=== PATIENT | male | born 1945 | race Caucasian/White ===

== ENCOUNTER 2021-11-29 22:16 | Observation (INO) | payer MEDICARE ==
[2021-11-29] MEDS ORDERED: CARDENE*** 25 MG in Sodium Chloride 0.9% 250 ML 240 ML IV PRN (22:38)
[2021-11-29] MEDS ORDERED: Sodium Chloride 0.9% 250 ML 250 ML IV ONE (22:42)
[2021-11-29] MEDS ORDERED: CARDENE IV ONE (22:42)
[2021-11-29] MEDS ORDERED: Zofran 4 MG/2 ML VIAL ONE (22:52)
[2021-11-29] MEDS ORDERED: Ativan 2 MG/1 ML VIAL ONE (22:52)
[2021-11-29] MEDS ORDERED: Zofran 4 MG/2 ML VIAL IV ONE (22:54)
[2021-11-29] MEDS ORDERED: Ativan 2 MG/1 ML VIAL IM ONE (22:54)
[2021-11-29 23:06] LABS: Absolute Neutrophil Ct (ANC) 7.53 (1.4-6.9); Basophil (Absolute #) 0.11 (0-0.4); Eosinophil % 2.9 % (0.00-5.0); Hematocrit 45.4 % (42-50); Hemoglobin 15.4 gm/dl (12.5-18.0); Lymphocyte (Absolute #) 1.33 (1.0-4.6); Mean Cell Volume 95.6 fl (78-100); Mean Corpuscular Hemoglobin 32.4 pg (26-32); Mean Corpuscular Hgb Concent. 33.9 g/dl (32-36); Mean Platelet Volume 8.6 fl (7.5-11.0); Monocyte (Absolute #) 0.95 (0.0-1.3); Monocytes % 9.3 % (0.0-12.0); Neutrophil % 73.7 % (36.0-66.0); Platelet Count 222 K/mm3 (150-450); Red Blood Count 4.75 M/mm3 (4.1-5.6); Red Cell Distribution Width 13.4 % (11.5-14.0); White Blood Count 10.2 K/mm3 (4.0-10.5)
[2021-11-29 23:16] LABS: INR 0.98 (0.8-3.0); PROTIME 11.6 SECONDS (9.4-12.5)
[2021-11-29 23:27] LABS: Appearance CLEAR (CLEAR); Bilirubin NEGATIVE (NEGATIVE); Dipstick done @ ? MAIN LAB; Glucose NEGATIVE (NEGATIVE); Ketones NEGATIVE (NEGATIVE); Nitrite NEGATIVE (NEGATIVE); Protein,Urine Dip NEGATIVE (Negative); RBC TRACE-INTACT Ery/ul (0-5); Specific Gravity 1.025 (1.005-1.025); Urobilinogen 0.2 mg/dL (0-1)
[2021-11-29 23:30] LABS: ALBUMIN 4.5 g/dL (3.5-5.0); ALKALINE PHOSPHATASE 75 U/L (38-126); ANION GAP 12.6 MEQ/L (5-15); BLOOD UREA NITROGEN 12 mg/dL (9-20); CHLORIDE 104 mmol/L (98-107); Calcium 9.4 mg/dL (8.4-10.2); Carbon Dioxide 27 mmol/L (22-30); Creatinine 1 0.77 mg/dL (0.66-1.25); EST GLOMERULAR FILTRATION RATE > 60.0 ML/MIN; Glucose 110 mg/dL (74-106); MAGNESIUM 1.8 mg/dL (1.6-2.3); NT PRO BNP 1300 pg/mL (0-1800); Potassium 4.7 mmol/L (3.5-5.1); SGOT/AST 27 U/L (17-59); SGPT/ALT 16 U/L (0-50); SODIUM 139 mmol/L (137-145); Total Protein 7.7 g/dL (6.3-8.2)
--- NOTE | 2021-11-29 23:35 | ERPHSYRPT ---
- History of Present Illness Time Seen by Provider: 11/29/21 22:25 Source: patient, family Exam Limitations: no limitations Patient Subjective Stated Complaint: shortness of breath Triage Nursing Assessment: pt c/o shortness of breath since 2129 this evening. Pt had gone to bed and just couldn't go to sleep. Lung smith diminished throughout. Heart tones reg, pt has a pacemaker. Pt denies any chest pain. Pt denies cough. Physician History: Patient is a 76-year-old male who laid down this evening with plans to go to sleep when he could go to sleep he became extremely short of breath he noticed his blood pressure to be markedly elevated. On arrival his blood pressure was 220/144 heart rate was 79 EKG showed a paced rhythm. He has no chest pain at all and no history of CHF. Patient also denies any any cough. 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 Timing/Duration: today Activities at Onset: rest Severity of Dyspnea-Max: moderate Severity of Dyspnea-Current: moderate Modifying Factors: Improves With: exertion Associated Symptoms: anxiety Allergies/Adverse Reactions: No Known Drug Allergies Allergy (Unverified 11/29/21 22:31) Home Medications: Metoprolol Succinate 100 mg [Toprol Xl 100 MG] 50 mg PO BID 11/29/21 [History] Hx Tetanus, Diphtheria Vaccination/Date Given: No Hx Influenza Vaccination/Date Given: Yes Hx Pneumococcal Vaccination/Date Given: Yes Immunizations Up to Date: No Travel Risk - International Travel Have you traveled outside of the country in past 3 weeks: No - Coronavirus Screening Are you exhibiting any of the following symptoms?: Yes Symptoms: Shortness of Breath Close contact with a COVID-19 positive Pt in past 14-21 Days: No - Vaccine Status Have you recieved a Covid-19 vaccination: Yes Supply Chain Specialist: Moderna - Vaccination Dates Date of 2cond Vaccination (if applicable): 10/01/20 - Review of Systems Constitutional: No Fever, No Chills Eyes: No Symptoms Ears, Nose, & Throat: No Symptoms Respiratory: Dyspnea, Dyspnea on Exertion (CEDENO), No Cough Cardiac: No Chest Pain, No Edema, No Syncope Abdominal/Gastrointestinal: No Abdominal Pain, No Nausea, No Vomiting, No Diarrhea Genitourinary Symptoms: No Dysuria Musculoskeletal: No Back Pain, No Neck Pain Skin: No Rash Neurological: No Dizziness, No Focal Weakness, No Sensory Changes Psychological: No Symptoms, Anxiety Endocrine: No Symptoms Hematologic/Lymphatic: No Symptoms Immunological/Allergic: No Symptoms All Other Systems: Reviewed and Negative - Past Medical History Pertinent Past Medical History: Yes Neurological History: No Pertinent History ENT History: No Pertinent History Cardiac History: Aneurysm, High Cholesterol, Hypertension Respiratory History: No Pertinent History Endocrine Medical History: No Pertinent History Musculoskeletal History: No Pertinent History GI Medical History: No Pertinent History History: No Pertinent History Psycho-Social History: Anxiety Male Reproductive Disorders: No Pertinent History - Past Surgical History Past Surgical History: Yes Neuro Surgical History: No Pertinent History Cardiac: CABG, Cardiac Catheterization, Pacemaker, Valve Replacement, Other Respiratory: No Pertinent History Gastrointestinal: No Pertinent History Genitourinary: No Pertinent History Musculoskeletal: No Pertinent History Male Surgical History: No Pertinent History - Social History Smoking Status: Current every day smoker How long have you smoked: 61 yrs Exposure to second hand smoke: No Drug Use: none Patient Lives Alone: No - Nursing Vital Signs Nursing Vital Signs: Initial Vital Signs Temperature 96.9 F 11/29/21 22:17 Pulse Rate 79 11/29/21 22:17 Respiratory Rate 22 11/29/21 22:17 Blood Pressure 221/144 11/29/21 22:17 O2 Sat by Pulse Oximetry 95 11/29/21 22:17 Pain Scale Pain Intensity 0 - Physical Exam General Appearance: moderate distress, alert, thin Eye Exam: PERRL/EOMI Ears, Nose, Throat Exam: hearing grossly normal, normal ENT inspection Neck Exam: normal inspection, supple Respiratory Exam: diminished breath sounds, crackles/rales Cardiovascular/Chest Exam: normal heart sounds, regular rate/rhythm Abdominal/Gastrointestinal Exam: soft, No tenderness, No distention, No mass Extremity Exam: non-tender, normal range of motion, normal inspection, no calf tenderness, no pedal edema Peripheral Pulses Exam: carotid (R): 2+, carotid (L): 2+ Neurologic Exam: alert, oriented x 3, cooperative, 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, sensation nml, No motor deficits Skin Exam: normal color, warm, No dry SpO2 Interpretation: normal SpO2: 95 O2 Delivery: Room Air - Course Nursing assessment & vital signs reviewed: Yes EKG Interpreted by Me: RATE, Other (EKG shows a paced rhythm bichamber pacemaker ) - Radiology Exams Chest X-ray Interpretation: Teleradiologist Report - CT Exams Chest CT Interpretation: Tele-radiologist Report Ordered Tests: Active Orders 24 hr Category Date Time Status Refuse Collector Supervisor STAT Care 11/29/21 22:41 Active EKG-ER Only STAT Care 11/29/21 22:31 Active IV Insertion STAT Care 11/29/21 22:31 Active IV Insertion-2nd Peripheral STAT Care 11/29/21 22:59 Active CHEST 1 VIEW (PORTABLE) Stat Exams 11/29/21 22:32 Taken CHEST WITH CONTRAST [CT] Routine Exams 11/30/21 00:11 Taken CBC W DIFF Stat Lab 11/29/21 23:00 Completed CMP Stat Lab 11/29/21 23:00 Completed D-DIMER QUANTITATIVE Stat Lab 11/29/21 23:00 Completed Lactic Acid Stat Lab 11/29/21 23:06 Completed MAGNESIUM Stat Lab 11/29/21 23:00 Completed NT PRO BNP Stat Lab 11/29/21 23:00 Completed PROTIME WITH INR Stat Lab 11/29/21 23:00 Completed TROPONIN Q3H Lab 11/29/21 23:00 Completed TROPONIN Q3H Lab 11/30/21 01:45 Ordered TROPONIN Q3H Lab 11/30/21 04:45 Ordered TROPONIN Q3H Lab 11/30/21 07:45 Ordered TROPONIN Q3H Lab 11/30/21 10:45 Ordered UA W/RFX CULTURE Stat Lab 11/29/21 23:04 Completed Respiratory Therapy Assessment DAILY RT 11/30/21 01:10 Active Medication Summary Generic Name Dose Route Start Last Admin Trade Name Freq PRN Reason Stop Dose Admin Nicardipine HCl 25 mg/ Sodium 250 mls @ 0 mls/hr 11/29/21 22:38 11/30/21 00:44 Chloride IV 12/29/21 22:37 2.5 mg/hr .Q0M PRN 25 mls/hr TITRATE FOR BLOOD PRESSURE Titration Protocol Titrate Discontinued Medications Generic Name Dose Route Start Last Admin Trade Name Freq PRN Reason Stop Dose Admin Albuterol/Ipratropium 3 ml 11/30/21 00:40 11/30/21 01:10 Ipratropium/Albuterol Sulfate 3 Ml Ampul.Neb IH 11/30/21 00:41 3 ml STAT ONE Administration Albuterol/Ipratropium Confirm 11/30/21 00:44 Ipratropium/Albuterol Sulfate 3 Ml Ampul.Neb Administered 11/30/21 00:45 Dose 3 ml IH .STK-MED ONE Amlodipine Besylate 5 mg 11/30/21 00:35 11/30/21 00:38 Amlodipine Besylate 5 Mg Tablet PO 11/30/21 00:36 5 mg STAT ONE Administration Amlodipine Besylate Confirm 11/30/21 00:36 Amlodipine Besylate 5 Mg Tablet Administered 11/30/21 00:37 Dose 5 mg .ROUTE .STK-MED ONE Methylprednisolone Sodium 0 mg 11/30/21 00:39 Succinate 125 mg/ Sterile IV 11/30/21 00:40 Water 2 ml STAT ONE Sodium Chloride Confirm 11/29/21 22:42 Sodium Chloride 0.9% 250 Ml Administered 11/29/21 22:43 Dose 250 mls @ ud IV .STK-MED ONE Lorazepam Confirm 11/29/21 22:52 Lorazepam 2 Mg/1 Ml 2 Mg Vial Administered 11/29/21 22:53 Dose 2 mg .ROUTE .STK-MED ONE Lorazepam 1 mg 11/29/21 22:54 11/29/21 22:59 Lorazepam 2 Mg/1 Ml 2 Mg Vial IM 11/29/21 22:55 1 mg STAT ONE Administration Nicardipine HCl Confirm 11/29/21 22:42 Nicardipine Hcl 25mg/10 Ml Sdv Administered 11/29/21 22:43 Dose 25 mg IV .STK-MED ONE Ondansetron HCl Confirm 11/29/21 22:52 Ondansetron Hcl 4 Mg/2 Ml Vial Administered 11/29/21 22:53 Dose 4 mg .ROUTE .STK-MED ONE Ondansetron HCl 4 mg 11/29/21 22:54 11/29/21 22:59 Ondansetron Hcl 4 Mg/2 Ml Vial IV 11/29/21 22:55 4 mg STAT ONE Administration Lab/Rad Data: Laboratory Result Diagrams 11/29/21 23:00 11/29/21 23:00 Laboratory Results 11/29/21 11/29/21 11/29/21 Range/Units 23:06 23:04 23:00 WBC (4.0-10.5) K/mm3 RBC (4.1-5.6) M/mm3 Hgb (12.5-18.0) gm/dl Hct (42-50) % MCV (78-100) fl MCH (26-32) pg MCHC (32-36) g/dl RDW (11.5-14.0) % Plt Count (150-450) K/mm3 MPV (7.5-11.0) fl Gran % (36.0-66.0) % Eos # (Auto) (0-0.5) Absolute Lymphs (auto) (1.0-4.6) Absolute Monos (auto) (0.0-1.3) Lymphocytes % (24.0-44.0) % Monocytes % (0.0-12.0) % Eosinophils % (0.00-5.0) % Basophils % (0.0-0.4) % Absolute Granulocytes (1.4-6.9) Basophils # (0-0.4) PT (9.4-12.5) SECONDS INR (0.8-3.0) D-Dimer (215-500) ng/mL Sodium (137-145) mmol/L Potassium (3.5-5.1) mmol/L Chloride (98-107) mmol/L Carbon Dioxide (22-30) mmol/L Anion Gap (5-15) MEQ/L BUN (9-20) mg/dL Creatinine (0.66-1.25) mg/dL Estimated GFR ML/MIN Glucose (74-106) mg/dL Lactic Acid 0.9 (0.4-2.0) Calcium (8.4-10.2) mg/dL Magnesium (1.6-2.3) mg/dL Total Bilirubin (0.2-1.3) mg/dL AST (17-59) U/L ALT (0-50) U/L Alkaline Phosphatase (38-126) U/L Troponin I 0.013 (0.000-0.034) ng/mL NT-Pro-B Natriuret Pep (0-1800) pg/mL Serum Total Protein (6.3-8.2) g/dL Albumin (3.5-5.0) g/dL Urinalys Dipstick Clnc MAIN LAB Urine Color LT.YELLOW (YELLOW) Urine Appearance CLEAR (CLEAR) Urine pH 7.0 (5-6) Ur Specific [place] 1.025 (1.005-1.025) POC Urine Protein Conf NEGATIVE (Negative) Urine Ketones NEGATIVE (NEGATIVE) Urine Nitrite NEGATIVE (NEGATIVE) Urine Bilirubin NEGATIVE (NEGATIVE) Urine Urobilinogen 0.2 (0-1) mg/dL Urine Leukocytes NEGATIVE (NEGATIVE) Urine WBC (Auto) NONE (0-5) /HPF Urine RBC (Auto) NONE (0-2) /HPF U Epithel Cells (Auto) Not Reportable Urine Bacteria (Auto) NONE (NEGATIVE) /HPF Urine RBC TRACE-INTACT (0-5) Barber/ul Ur Culture Indicated? NO Urine Glucose NEGATIVE (NEGATIVE) mg/dL 11/29/21 11/29/21 11/29/21 Range/Units 23:00 23:00 23:00 WBC 10.2 (4.0-10.5) K/mm3 RBC 4.75 (4.1-5.6) M/mm3 Hgb 15.4 (12.5-18.0) gm/dl Hct 45.4 (42-50) % MCV 95.6 (78-100) fl MCH 32.4 H (26-32) pg MCHC 33.9 (32-36) g/dl RDW 13.4 (11.5-14.0) % Plt Count 222 (150-450) K/mm3 MPV 8.6 (7.5-11.0) fl Gran % 73.7 H (36.0-66.0) % Eos # (Auto) 0.30 (0-0.5) Absolute Lymphs (auto) 1.33 (1.0-4.6) Absolute Monos (auto) 0.95 (0.0-1.3) Lymphocytes % 13.0 L (24.0-44.0) % Monocytes % 9.3 (0.0-12.0) % Eosinophils % 2.9 (0.00-5.0) % Basophils % 1.1 (0.0-0.4) % Absolute Granulocytes 7.53 H (1.4-6.9) Basophils # 0.11 (0-0.4) PT 11.6 (9.4-12.5) SECONDS INR 0.98 (0.8-3.0) D-Dimer 2230 H* (215-500) ng/mL Sodium 139 (137-145) mmol/L Potassium 4.7 (3.5-5.1) mmol/L Chloride 104 (98-107) mmol/L Carbon Dioxide 27 (22-30) mmol/L Anion Gap 12.6 (5-15) MEQ/L BUN 12 (9-20) mg/dL Creatinine 0.77 (0.66-1.25) mg/dL Estimated GFR > 60.0 ML/MIN Glucose 110 H (74-106) mg/dL Lactic Acid (0.4-2.0) Calcium 9.4 (8.4-10.2) mg/dL Magnesium 1.8 (1.6-2.3) mg/dL Total Bilirubin 0.60 (0.2-1.3) mg/dL AST 27 (17-59) U/L ALT 16 (0-50) U/L Alkaline Phosphatase 75 (38-126) U/L Troponin I (0.000-0.034) ng/mL NT-Pro-B Natriuret Pep 1300 (0-1800) pg/mL Serum Total Protein 7.7 (6.3-8.2) g/dL Albumin 4.5 (3.5-5.0) g/dL Urinalys Dipstick Clnc Urine Color (YELLOW) Urine Appearance (CLEAR) Urine pH (5-6) Ur Specific [place] (1.005-1.025) POC Urine Protein Conf (Negative) Urine Ketones (NEGATIVE) Urine Nitrite (NEGATIVE) Urine Bilirubin (NEGATIVE) Urine Urobilinogen (0-1) mg/dL Urine Leukocytes (NEGATIVE) Urine WBC (Auto) (0-5) /HPF Urine RBC (Auto) (0-2) /HPF U Epithel Cells (Auto) Urine Bacteria (Auto) (NEGATIVE) /HPF Urine RBC (0-5) Barber/ul Ur Culture Indicated? Urine Glucose (NEGATIVE) mg/dL - Departure Departure Disposition: Observation Clinical Impression: COPD exacerbation, Hypertensive urgency Condition: Stable Critical Care Time: Yes Critical Care Time(excluding separately billable procedures): Critical 30-74 mins (30 minutes) Referrals: CORBY JULIO NP [Primary Care Provider] - Follow up/PCP as directed Instructions: Chronic Obstructive Pulmonary Disease
[2021-11-29 23:49] LABS: Urine Cultured Indicated? NO
[2021-11-30] MEDS ORDERED: NORVASC 5 MG PO ONE (00:35)
[2021-11-30] MEDS ORDERED: NORVASC 5 MG ONE (00:36)
[2021-11-30] MEDS ORDERED: solu-MEDROL 125 MG, Sterile H2O 10 ml 2 ML IV ONE ×2 (00:39)
[2021-11-30] MEDS ORDERED: DUONEB 0.5-3 MG/3 ml Neb IH ONE ×2 (00:40→00:44)
[2021-11-30] MEDS ORDERED: Sodium Chloride 0.9% 1000 ML 1,000 ML IV SCH (01:30)
[2021-11-30] MEDS ORDERED: Lasix 20 MG/2 ML IV ONE (01:31)
[2021-11-30] MEDS ORDERED: solu-MEDROL ONE ×2 (01:39→05:24)
[2021-11-30] MEDS ORDERED: ENOXAPARIN SODIUM SQ ONE (01:39)
[2021-11-30] MEDS ORDERED: Sterile H2O 10 ml IJ ONE ×2 (01:39→05:24)
[2021-11-30] MEDS: Lasix 40 MG/4 ML IV SCH ×2 (01:45→09:54)
[2021-11-30] MEDS: ENOXAPARIN SODIUM SQ SCH ×2 (01:46→09:54)
[2021-11-30 02:01] LABS: INFLUENZA A NEGATIVE (NEGATIVE); INFLUENZA B NEGATIVE (NEGATIVE); RESPIRATORY SYNCTIAL VIRUS NEGATIVE (Negative); SARS-CoV-2 Xpert Express NEGATIVE (NEGATIVE)
[2021-11-30] MEDS: PROVENTIL 2.5 MG/3 ML NEB IH SCH ×3 (03:30→11:31)
[2021-11-30 04:30] LABS: Slide Review 1 YES
[2021-11-30] MEDS: solu-MEDROL 60 MG, Sterile H2O 10 ml 2 ML IV SCH ×4 (05:58→13:11)
[2021-11-30] MEDS ORDERED: PROVENTIL Solution 2.5 MG/0.5 ML IH ONE (06:54)
[2021-11-30 07:58] LABS: Hematocrit 45.7 % (42-50); Hemoglobin 15.6 gm/dl (12.5-18.0); Mean Cell Volume 94.4 fl (78-100); Mean Corpuscular Hemoglobin 32.2 pg (26-32); Mean Corpuscular Hgb Concent. 34.1 g/dl (32-36); Mean Platelet Volume 9.5 fl (7.5-11.0); Platelet Count 223 K/mm3 (150-450); Red Blood Count 4.84 M/mm3 (4.1-5.6); Red Cell Distribution Width 13.3 % (11.5-14.0); White Blood Count 6.8 K/mm3 (4.0-10.5)
--- NOTE | 2021-11-30 09:00 | XRAY ---
Indication: Short of breath and left arm pain. Elevated d-dimer. Multiple contiguous axial images obtained through the chest using 80 cc Isovue 370 contrast and PE protocol. Comparison: CT chest with contrast August 02, 2005. There is good opacification of the pulmonary arteries to include the lobar and segmental branches. No pulmonary embolus. Heart not enlarged again with left pacemaker and CABG surgery. Aorta mildly atherosclerotic without aneurysm/dissection. Again small right hilar calcified nodes. No pathologic mediastinal/hilar lymphadenopathy. Stable small hiatal hernia. Lungs again demonstrates mild diffuse pulmonary emphysema, minimal scattered fibrosis/scarring, and tiny right upper lobe calcified granuloma. New posterior left lower lobe 6 mm subpleural metallic density. No suspicious pulmonary mass, infiltrate, or effusion. Bony thorax intact with mild osteopenia, lower cervical degenerative spondylosis, and remote L1 superior endplate fracture with less than 25% height loss. Limited upper abdomen again demonstrates tiny splenic calcified granulomas. Impression: 1. Negative pulmonary embolus. No acute cardiopulmonary abnormalities. 2. Chronic findings including pulmonary emphysema, fibrosis/scarring, left lower lobe foreign body, chronic bony findings, and old granulomatous disease. Comment: Preliminary interpretation made by [facility]. No critical discrepancy.
--- NOTE | 2021-11-30 09:00 | XRAY ---
Indication: Short of breath. Hypertension. Comparison: None Portable chest hyperinflated and clear with incidental tiny right apical calcified granuloma. Heart not enlarged with CABG and left pacemaker. Bony thorax intact with mild osteopenia and degenerative changes. Impression: Nonacute chest with chronic features. Comment: Preliminary interpretation made by [facility]. No critical discrepancy.
[2021-11-30] MEDS ORDERED: TORAdol 30 mg Injection IV ONE (09:28)
[2021-11-30] MEDS ORDERED: Zestril 20 MG PO SCH (10:00)
[2021-11-30] MEDS ORDERED: Toprol Xl 100 MG PO SCH (10:00)
[2021-11-30] MEDS ORDERED: ROCEPHIN 1 Gm-D5w 50 ml Bag** 1 G/50 ML IVPB IV SCH (10:00)
[2021-11-30 10:09] LABS: ANION GAP 15.2 MEQ/L (5-15); BLOOD UREA NITROGEN 12 mg/dL (9-20); CHLORIDE 102 mmol/L (98-107); Calcium 9.3 mg/dL (8.4-10.2); Carbon Dioxide 25 mmol/L (22-30); Creatinine 1 0.76 mg/dL (0.66-1.25); EST GLOMERULAR FILTRATION RATE > 60.0 ML/MIN; Glucose 152 mg/dL (74-106); Potassium 3.8 mmol/L (3.5-5.1); SODIUM 139 mmol/L (137-145)
[2021-11-30 11:23] VITALS: BP 109/56
[2021-11-30 11:36] VITALS: PULSE 84; O2SAT 93
--- NOTE | 2021-11-30 12:46 | PCM.SSS ---
History of Present Illness - Chief Complaint Chief Complaint: COPD History of Present Illness: is a 76 [facility] Presented to ER with acute shorness of breath and B/P was 220/144. States he has been in pain down left arm deep sharp shooting pains and reports a rash left shoulder region for 3 weeks. PMHx HTN,HLD,S/P aortic valve replacement and aortic graft, CAD/stents(no CABG),pacemaker, COPD everyday smoker. - Review of Systems Constitutional: No Symptoms Eyes: No Symptoms Ears, Nose, & Throat: No Symptoms Respiratory: Short Of Breath Cardiac: Other (denies chest pain) Abdominal/Gastrointestinal: No Symptoms Genitourinary Symptoms: No Symptoms Musculoskeletal: Other (pain left shoulder to elbow ) Skin: No Symptoms, Rash (left shoulder region) Medications & Allergies Home Medications: Home Medication List Metoprolol Succinate 100 mg [Toprol Xl 100 MG] 50 mg PO BID 11/29/21 [History Confirmed 11/29/21] Atorvastatin Calcium [Lipitor] 40 mg PO QHS 11/30/21 [History Confirmed 11/30/21] Lisinopril 10 mg [Zestril 10 MG] 10 mg PO DAILY 11/30/21 [History Con firmed 11/30/21] Methylprednisolone Packet [Medrol Dosepack] 1 mg PO UD #1 packet 11/30/21 [Rx] Valacyclovir HCl [Valacyclovir] 1,000 mg PO TID #21 tablet 11/30/21 [Rx] Allergies/Adverse Reactions: Allergies Allergy/AdvReac Type Severity Reaction Status Date / Time No Known Drug Allergies Allergy Unverified 11/29/21 22:31 - Past Medical History Past Medical History: Yes Neurological History: No Pertinent History ENT History: No Pertinent History Cardiac History: Aneurysm, Coronary Artery Disease (stents), High Cholesterol, Hypertension, Other (aortic valve replaced,aortic aneurysm graft) Respiratory History: No Pertinent History Endocrine Medical History: No Pertinent History Musculoskelatal History: No Pertinent History GI Medical History: No Pertinent History History: No Pertinent History Pyscho-Social History: Anxiety Male Reproductive Disorders: No Pertinent History - Past Surgical History Past Surgical History: Yes Neuro Surgical History: No Pertinent History Cardiac History: Cardiac Catheterization, Pacemaker, Valve Replacement, Other (stent coronary artery) Respiratory Surgery: No Pertinent History GI Surgical History: No Pertinent History Genitourinary Surgical Hx: No Pertinent History Musculskeletal Surgical Hx: No Pertinent History Male Surgical History: No Pertinent History - Social History Smoking Status: Current every day smoker How long have you smoked: 60 years Exposure to second hand smoke: No Alcohol: None Drug Use: none - Physical Exam Vital Signs: Vital Signs - 24 hr Temp Pulse Resp BP Pulse Ox 11/30/21 11:34 84 20 93 L 11/30/21 11:26 97.6 F 70 16 109/56 95 11/30/21 11:22 97.6 F 70 16 109/56 95 11/30/21 07:58 64 20 93 L 11/30/21 07:11 98.0 F 70 16 124/68 93 L 11/30/21 03:30 64 18 92 L 11/30/21 03:16 97.1 F 70 16 167/85 92 L 11/30/21 02:49 65 16 136/79 92 L 11/30/21 02:14 71 20 161/91 92 L 11/30/21 01:24 92 L 11/30/21 01:18 95 11/30/21 01:10 70 20 159/79 92 L 11/30/21 00:00 97.4 F 71 22 146/86 92 L 11/29/21 23:17 71 24 159/91 95 11/29/21 22:20 24 97 11/29/21 22:17 96.9 F 79 22 221/144 95 General Appearance: no apparent distress Neurologic Exam: alert, oriented x 3, cooperative, normal mood/affect, nml station & gait Eye Exam: eyes nml inspection Ears, Nose, Throat Exam: normal ENT inspection Neck Exam: normal inspection Respiratory Exam: diminished breath sounds (bases ,no rales no ronchi no wheeze) Cardiovascular Exam: regular rate/rhythm Gastrointestinal/Abdomen Exam: soft, normal bowel sounds (nontender) Rectal Exam: not done Back Exam: normal inspection Extremity Exam: normal inspection Results - Labs Lab/Micro Results: Lab Results-Last 24 Hours 11/29/21 11/29/21 11/29/21 Range/Units 23:00 23:00 23:00 WBC 10.2 (4.0-10.5) K/mm3 RBC 4.75 (4.1-5.6) M/mm3 Hgb 15.4 (12.5-18.0) gm/dl Hct 45.4 (42-50) % MCV 95.6 (78-100) fl MCH 32.4 H (26-32) pg MCHC 33.9 (32-36) g/dl RDW 13.4 (11.5-14.0) % Plt Count 222 (150-450) K/mm3 MPV 8.6 (7.5-11.0) fl Gran % 73.7 H (36.0-66.0) % Eos # (Auto) 0.30 (0-0.5) Absolute Lymphs (auto) 1.33 (1.0-4.6) Absolute Monos (auto) 0.95 (0.0-1.3) Lymphocytes % 13.0 L (24.0-44.0) % Monocytes % 9.3 (0.0-12.0) % Eosinophils % 2.9 (0.00-5.0) % Basophils % 1.1 (0.0-0.4) % Absolute Granulocytes 7.53 H (1.4-6.9) Basophils # 0.11 (0-0.4) PT 11.6 (9.4-12.5) SECONDS INR 0.98 (0.8-3.0) D-Dimer 2230 H* (215-500) ng/mL Sodium 139 (137-145) mmol/L Potassium 4.7 (3.5-5.1) mmol/L Chloride 104 (98-107) mmol/L Carbon Dioxide 27 (22-30) mmol/L Anion Gap 12.6 (5-15) MEQ/L BUN 12 (9-20) mg/dL Creatinine 0.77 (0.66-1.25) mg/dL Estimated GFR > 60.0 ML/MIN Glucose 110 H (74-106) mg/dL Lactic Acid (0.4-2.0) Calcium 9.4 (8.4-10.2) mg/dL Magnesium 1.8 (1.6-2.3) mg/dL Total Bilirubin 0.60 (0.2-1.3) mg/dL AST 27 (17-59) U/L ALT 16 (0-50) U/L Alkaline Phosphatase 75 (38-126) U/L Troponin I (0.000-0.034) ng/mL NT-Pro-B Natriuret Pep 1300 (0-1800) pg/mL Serum Total Protein 7.7 (6.3-8.2) g/dL Albumin 4.5 (3.5-5.0) g/dL Urinalys Dipstick Clnc Urine Color (YELLOW) Urine Appearance (CLEAR) Urine pH (5-6) Ur Specific [place] (1.005-1.025) POC Urine Protein Conf (Negative) Urine Ketones (NEGATIVE) Urine Nitrite (NEGATIVE) Urine Bilirubin (NEGATIVE) Urine Urobilinogen (0-1) mg/dL Urine Leukocytes (NEGATIVE) Urine WBC (Auto) (0-5) /HPF Urine RBC (Auto) (0-2) /HPF U Epithel Cells (Auto) Urine Bacteria (Auto) (NEGATIVE) /HPF Urine RBC (0-5) Barber/ul Ur Culture Indicated? Urine Glucose (NEGATIVE) mg/dL Influenza Type A Ag (NEGATIVE) Influenza Type B Ag (NEGATIVE) RSV (PCR) (Negative) SARS-CoV-2 (PCR) (NEGATIVE) Slides for Path Review YES 11/29/21 11/29/21 11/29/21 Range/Units 23:00 23:04 23:06 WBC (4.0-10.5) K/mm3 RBC (4.1-5.6) M/mm3 Hgb (12.5-18.0) gm/dl Hct (42-50) % MCV (78-100) fl MCH (26-32) pg MCHC (32-36) g/dl RDW (11.5-14.0) % Plt Count (150-450) K/mm3 MPV (7.5-11.0) fl Gran % (36.0-66.0) % Eos # (Auto) (0-0.5) Absolute Lymphs (auto) (1.0-4.6) Absolute Monos (auto) (0.0-1.3) Lymphocytes % (24.0-44.0) % Monocytes % (0.0-12.0) % Eosinophils % (0.00-5.0) % Basophils % (0.0-0.4) % Absolute Granulocytes (1.4-6.9) Basophils # (0-0.4) PT (9.4-12.5) SECONDS INR (0.8-3.0) D-Dimer (215-500) ng/mL Sodium (137-145) mmol/L Potassium (3.5-5.1) mmol/L Chloride (98-107) mmol/L Carbon Dioxide (22-30) mmol/L Anion Gap (5-15) MEQ/L BUN (9-20) mg/dL Creatinine (0.66-1.25) mg/dL Estimated GFR ML/MIN Glucose (74-106) mg/dL Lactic Acid 0.9 (0.4-2.0) Calcium (8.4-10.2) mg/dL Magnesium (1.6-2.3) mg/dL Total Bilirubin (0.2-1.3) mg/dL AST (17-59) U/L ALT (0-50) U/L Alkaline Phosphatase (38-126) U/L Troponin I 0.013 (0.000-0.034) ng/mL NT-Pro-B Natriuret Pep (0-1800) pg/mL Serum Total Protein (6.3-8.2) g/dL Albumin (3.5-5.0) g/dL Urinalys Dipstick Clnc MAIN LAB Urine Color LT.YELLOW (YELLOW) Urine Appearance CLEAR (CLEAR) Urine pH 7.0 (5-6) Ur Specific [place] 1.025 (1.005-1.025) POC Urine Protein Conf NEGATIVE (Negative) Urine Ketones NEGATIVE (NEGATIVE) Urine Nitrite NEGATIVE (NEGATIVE) Urine Bilirubin NEGATIVE (NEGATIVE) Urine Urobilinogen 0.2 (0-1) mg/dL Urine Leukocytes NEGATIVE (NEGATIVE) Urine WBC (Auto) NONE (0-5) /HPF Urine RBC (Auto) NONE (0-2) /HPF U Epithel Cells (Auto) Not Reportable Urine Bacteria (Auto) NONE (NEGATIVE) /HPF Urine RBC TRACE-INTACT (0-5) Barber/ul Ur Culture Indicated? NO Urine Glucose NEGATIVE (NEGATIVE) mg/dL Influenza Type A Ag (NEGATIVE) Influenza Type B Ag (NEGATIVE) RSV (PCR) (Negative) SARS-CoV-2 (PCR) (NEGATIVE) Slides for Path Review 11/30/21 11/30/21 11/30/21 Range/Units 01:30 02:00 07:30 WBC (4.0-10.5) K/mm3 RBC (4.1-5.6) M/mm3 Hgb (12.5-18.0) gm/dl Hct (42-50) % MCV (78-100) fl MCH (26-32) pg MCHC (32-36) g/dl RDW (11.5-14.0) % Plt Count (150-450) K/mm3 MPV (7.5-11.0) fl Gran % (36.0-66.0) % Eos # (Auto) (0-0.5) Absolute Lymphs (auto) (1.0-4.6) Absolute Monos (auto) (0.0-1.3) Lymphocytes % (24.0-44.0) % Monocytes % (0.0-12.0) % Eosinophils % (0.00-5.0) % Basophils % (0.0-0.4) % Absolute Granulocytes (1.4-6.9) Basophils # (0-0.4) PT (9.4-12.5) SECONDS INR (0.8-3.0) D-Dimer (215-500) ng/mL Sodium (137-145) mmol/L Potassium (3.5-5.1) mmol/L Chloride (98-107) mmol/L Carbon Dioxide (22-30) mmol/L Anion Gap (5-15) MEQ/L BUN (9-20) mg/dL Creatinine (0.66-1.25) mg/dL Estimated GFR ML/MIN Glucose (74-106) mg/dL Lactic Acid (0.4-2.0) Calcium (8.4-10.2) mg/dL Magnesium (1.6-2.3) mg/dL Total Bilirubin (0.2-1.3) mg/dL AST (17-59) U/L ALT (0-50) U/L Alkaline Phosphatase (38-126) U/L Troponin I 0.022 0.017 (0.000-0.034) ng/mL NT-Pro-B Natriuret Pep (0-1800) pg/mL Serum Total Protein (6.3-8.2) g/dL Albumin (3.5-5.0) g/dL Urinalys Dipstick Clnc Urine Color (YELLOW) Urine Appearance (CLEAR) Urine pH (5-6) Ur Specific [place] (1.005-1.025) POC Urine Protein Conf (Negative) Urine Ketones (NEGATIVE) Urine Nitrite (NEGATIVE) Urine Bilirubin (NEGATIVE) Urine Urobilinogen (0-1) mg/dL Urine Leukocytes (NEGATIVE) Urine WBC (Auto) (0-5) /HPF Urine RBC (Auto) (0-2) /HPF U Epithel Cells (Auto) Urine Bacteria (Auto) (NEGATIVE) /HPF Urine RBC (0-5) Barber/ul Ur Culture Indicated? Urine Glucose (NEGATIVE) mg/dL Influenza Type A Ag NEGATIVE (NEGATIVE) Influenza Type B Ag NEGATIVE (NEGATIVE) RSV (PCR) NEGATIVE (Negative) SARS-CoV-2 (PCR) NEGATIVE (NEGATIVE) Slides for Path Review 11/30/21 11/30/21 Range/Units 07:30 07:30 WBC 6.8 (4.0-10.5) K/mm3 RBC 4.84 (4.1-5.6) M/mm3 Hgb 15.6 (12.5-18.0) gm/dl Hct 45.7 (42-50) % MCV 94.4 (78-100) fl MCH 32.2 H (26-32) pg MCHC 34.1 (32-36) g/dl RDW 13.3 (11.5-14.0) % Plt Count 223 (150-450) K/mm3 MPV 9.5 (7.5-11.0) fl Gran % (36.0-66.0) % Eos # (Auto) (0-0.5) Absolute Lymphs (auto) (1.0-4.6) Absolute Monos (auto) (0.0-1.3) Lymphocytes % (24.0-44.0) % Monocytes % (0.0-12.0) % Eosinophils % (0.00-5.0) % Basophils % (0.0-0.4) % Absolute Granulocytes (1.4-6.9) Basophils # (0-0.4) PT (9.4-12.5) SECONDS INR (0.8-3.0) D-Dimer (215-500) ng/mL Sodium 139 (137-145) mmol/L Potassium 3.8 (3.5-5.1) mmol/L Chloride 102 (98-107) mmol/L Carbon Dioxide 25 (22-30) mmol/L Anion Gap 15.2 H (5-15) MEQ/L BUN 12 (9-20) mg/dL Creatinine 0.76 (0.66-1.25) mg/dL Estimated GFR > 60.0 ML/MIN Glucose 152 H (74-106) mg/dL Lactic Acid (0.4-2.0) Calcium 9.3 (8.4-10.2) mg/dL Magnesium (1.6-2.3) mg/dL Total Bilirubin (0.2-1.3) mg/dL AST (17-59) U/L ALT (0-50) U/L Alkaline Phosphatase (38-126) U/L Troponin I (0.000-0.034) ng/mL NT-Pro-B Natriuret Pep (0-1800) pg/mL Serum Total Protein (6.3-8.2) g/dL Albumin (3.5-5.0) g/dL Urinalys Dipstick Clnc Urine Color (YELLOW) Urine Appearance (CLEAR) Urine pH (5-6) Ur Specific [place] (1.005-1.025) POC Urine Protein Conf (Negative) Urine Ketones (NEGATIVE) Urine Nitrite (NEGATIVE) Urine Bilirubin (NEGATIVE) Urine Urobilinogen (0-1) mg/dL Urine Leukocytes (NEGATIVE) Urine WBC (Auto) (0-5) /HPF Urine RBC (Auto) (0-2) /HPF U Epithel Cells (Auto) Urine Bacteria (Auto) (NEGATIVE) /HPF Urine RBC (0-5) Barber/ul Ur Culture Indicated? Urine Glucose (NEGATIVE) mg/dL Influenza Type A Ag (NEGATIVE) Influenza Type B Ag (NEGATIVE) RSV (PCR) (Negative) SARS-CoV-2 (PCR) (NEGATIVE) Slides for Path Review - Radiology Impressions Radiology Exams & Impressions: Radiology Procedures Category Date Time Status CHEST 1 VIEW (PORTABLE) Stat Exams 11/29/21 22:32 Completed CHEST WITH CONTRAST [CT] Routine Exams 11/30/21 00:11 Completed - Other Procedures and Tests Respiratory Therapy 11/30/21 01:10 Respiratory Therapy Assessment DAILY 11/30/21 01:24 Peak Expiratory Flow Rate BEFORE&AFTER NEB TX Assessment/Plan (1) COPD exacerbation Current Visit: Yes Status: Acute Assessment & Plan: at [facility] Code(s): J44.1 - CHRONIC OBSTRUCTIVE PULMONARY DISEASE W (ACUTE) EXACERBATION (2) Hypertensive urgency Current Visit: Yes Status: Resolved Assessment & Plan: due to pain from shingles per patient Code(s): I16.0 - HYPERTENSIVE URGENCY (3) Post herpetic neuralgia Current Visit: Yes Status: Acute Assessment & Plan: relief with one injectio Ketoralac 30mg, will discharge on prednisone and antiviral Code(s): B02.29 - OTHER POSTHERPETIC NERVOUS SYSTEM INVOLVEMENT Hospital Summary - Hospital Course Hospital Course: Patient was admitted from ER to [facility] for obs overnight B/P has returned to normal and he has not been short of breath,no cough. No chest pain .Appetite is good,no abdominal pain. Is energetic and asking to go home. at bedside. Patient has an appt at the [place] [facility] this . Discussed tx for Shingles post herpetic neuralgia and Rx sent to [facility]. Advised smoke cessation. - Vitals & Intake/Output Vital Signs: Vital Signs Temperature 97.6 F 11/30/21 11:26 Pulse Rate 84 11/30/21 11:34 Respiratory Rate 20 11/30/21 11:34 Blood Pressure 109/56 11/30/21 11:26 O2 Sat by Pulse Oximetry 93 L 11/30/21 11:34 Intake & Output: Intake & Output 11/28/21 11/29/21 11/30/21 12/01/21 11:59 11:59 11:59 11:59 Intake Total 580 Output Total 1650 Balance -1070 Weight 67.3 kg - Lab Result Diagrams: 11/30/21 07:30 11/30/21 07:30 Lab Results-Last 24 Hrs: Lab Results-Last 24 Hours 11/29/21 11/29/21 11/29/21 Range/Units 23:00 23:00 23:00 WBC 10.2 (4.0-10.5) K/mm3 RBC 4.75 (4.1-5.6) M/mm3 Hgb 15.4 (12.5-18.0) gm/dl Hct 45.4 (42-50) % MCV 95.6 (78-100) fl MCH 32.4 H (26-32) pg MCHC 33.9 (32-36) g/dl RDW 13.4 (11.5-14.0) % Plt Count 222 (150-450) K/mm3 MPV 8.6 (7.5-11.0) fl Gran % 73.7 H (36.0-66.0) % Eos # (Auto) 0.30 (0-0.5) Absolute Lymphs (auto) 1.33 (1.0-4.6) Absolute Monos (auto) 0.95 (0.0-1.3) Lymphocytes % 13.0 L (24.0-44.0) % Monocytes % 9.3 (0.0-12.0) % Eosinophils % 2.9 (0.00-5.0) % Basophils % 1.1 (0.0-0.4) % Absolute Granulocytes 7.53 H (1.4-6.9) Basophils # 0.11 (0-0.4) PT 11.6 (9.4-12.5) SECONDS INR 0.98 (0.8-3.0) D-Dimer 2230 H* (215-500) ng/mL Sodium 139 (137-145) mmol/L Potassium 4.7 (3.5-5.1) mmol/L Chloride 104 (98-107) mmol/L Carbon Dioxide 27 (22-30) mmol/L Anion Gap 12.6 (5-15) MEQ/L BUN 12 (9-20) mg/dL Creatinine 0.77 (0.66-1.25) mg/dL Estimated GFR > 60.0 ML/MIN Glucose 110 H (74-106) mg/dL Lactic Acid (0.4-2.0) Calcium 9.4 (8.4-10.2) mg/dL Magnesium 1.8 (1.6-2.3) mg/dL Total Bilirubin 0.60 (0.2-1.3) mg/dL AST 27 (17-59) U/L ALT 16 (0-50) U/L Alkaline Phosphatase 75 (38-126) U/L Troponin I (0.000-0.034) ng/mL NT-Pro-B Natriuret Pep 1300 (0-1800) pg/mL Serum Total Protein 7.7 (6.3-8.2) g/dL Albumin 4.5 (3.5-5.0) g/dL Urinalys Dipstick Clnc Urine Color (YELLOW) Urine Appearance (CLEAR) Urine pH (5-6) Ur Specific [place] (1.005-1.025) POC Urine Protein Conf (Negative) Urine Ketones (NEGATIVE) Urine Nitrite (NEGATIVE) Urine Bilirubin (NEGATIVE) Urine Urobilinogen (0-1) mg/dL Urine Leukocytes (NEGATIVE) Urine WBC (Auto) (0-5) /HPF Urine RBC (Auto) (0-2) /HPF U Epithel Cells (Auto) Urine Bacteria (Auto) (NEGATIVE) /HPF Urine RBC (0-5) Barber/ul Ur Culture Indicated? Urine Glucose (NEGATIVE) mg/dL Influenza Type A Ag (NEGATIVE) Influenza Type B Ag (NEGATIVE) RSV (PCR) (Negative) SARS-CoV-2 (PCR) (NEGATIVE) Slides for Path Review YES 11/29/21 11/29/21 11/29/21 Range/Units 23:00 23:04 23:06 WBC (4.0-10.5) K/mm3 RBC (4.1-5.6) M/mm3 Hgb (12.5-18.0) gm/dl Hct (42-50) % MCV (78-100) fl MCH (26-32) pg MCHC (32-36) g/dl RDW (11.5-14.0) % Plt Count (150-450) K/mm3 MPV (7.5-11.0) fl Gran % (36.0-66.0) % Eos # (Auto) (0-0.5) Absolute Lymphs (auto) (1.0-4.6) Absolute Monos (auto) (0.0-1.3) Lymphocytes % (24.0-44.0) % Monocytes % (0.0-12.0) % Eosinophils % (0.00-5.0) % Basophils % (0.0-0.4) % Absolute Granulocytes (1.4-6.9) Basophils # (0-0.4) PT (9.4-12.5) SECONDS INR (0.8-3.0) D-Dimer (215-500) ng/mL Sodium (137-145) mmol/L Potassium (3.5-5.1) mmol/L Chloride (98-107) mmol/L Carbon Dioxide (22-30) mmol/L Anion Gap (5-15) MEQ/L BUN (9-20) mg/dL Creatinine (0.66-1.25) mg/dL Estimated GFR ML/MIN Glucose (74-106) mg/dL Lactic Acid 0.9 (0.4-2.0) Calcium (8.4-10.2) mg/dL Magnesium (1.6-2.3) mg/dL Total Bilirubin (0.2-1.3) mg/dL AST (17-59) U/L ALT (0-50) U/L Alkaline Phosphatase (38-126) U/L Troponin I 0.013 (0.000-0.034) ng/mL NT-Pro-B Natriuret Pep (0-1800) pg/mL Serum Total Protein (6.3-8.2) g/dL Albumin (3.5-5.0) g/dL Urinalys Dipstick Clnc MAIN LAB Urine Color LT.YELLOW (YELLOW) Urine Appearance CLEAR (CLEAR) Urine pH 7.0 (5-6) Ur Specific [place] 1.025 (1.005-1.025) POC Urine Protein Conf NEGATIVE (Negative) Urine Ketones NEGATIVE (NEGATIVE) Urine Nitrite NEGATIVE (NEGATIVE) Urine Bilirubin NEGATIVE (NEGATIVE) Urine Urobilinogen 0.2 (0-1) mg/dL Urine Leukocytes NEGATIVE (NEGATIVE) Urine WBC (Auto) NONE (0-5) /HPF Urine RBC (Auto) NONE (0-2) /HPF U Epithel Cells (Auto) Not Reportable Urine Bacteria (Auto) NONE (NEGATIVE) /HPF Urine RBC TRACE-INTACT (0-5) Barber/ul Ur Culture Indicated? NO Urine Glucose NEGATIVE (NEGATIVE) mg/dL Influenza Type A Ag (NEGATIVE) Influenza Type B Ag (NEGATIVE) RSV (PCR) (Negative) SARS-CoV-2 (PCR) (NEGATIVE) Slides for Path Review 11/30/21 11/30/21 11/30/21 Range/Units 01:30 02:00 07:30 WBC (4.0-10.5) K/mm3 RBC (4.1-5.6) M/mm3 Hgb (12.5-18.0) gm/dl Hct (42-50) % MCV (78-100) fl MCH (26-32) pg MCHC (32-36) g/dl RDW (11.5-14.0) % Plt Count (150-450) K/mm3 MPV (7.5-11.0) fl Gran % (36.0-66.0) % Eos # (Auto) (0-0.5) Absolute Lymphs (auto) (1.0-4.6) Absolute Monos (auto) (0.0-1.3) Lymphocytes % (24.0-44.0) % Monocytes % (0.0-12.0) % Eosinophils % (0.00-5.0) % Basophils % (0.0-0.4) % Absolute Granulocytes (1.4-6.9) Basophils # (0-0.4) PT (9.4-12.5) SECONDS INR (0.8-3.0) D-Dimer (215-500) ng/mL Sodium (137-145) mmol/L Potassium (3.5-5.1) mmol/L Chloride (98-107) mmol/L Carbon Dioxide (22-30) mmol/L Anion Gap (5-15) MEQ/L BUN (9-20) mg/dL Creatinine (0.66-1.25) mg/dL Estimated GFR ML/MIN Glucose (74-106) mg/dL Lactic Acid (0.4-2.0) Calcium (8.4-10.2) mg/dL Magnesium (1.6-2.3) mg/dL Total Bilirubin (0.2-1.3) mg/dL AST (17-59) U/L ALT (0-50) U/L Alkaline Phosphatase (38-126) U/L Troponin I 0.022 0.017 (0.000-0.034) ng/mL NT-Pro-B Natriuret Pep (0-1800) pg/mL Serum Total Protein (6.3-8.2) g/dL Albumin (3.5-5.0) g/dL Urinalys Dipstick Clnc Urine Color (YELLOW) Urine Appearance (CLEAR) Urine pH (5-6) Ur Specific [place] (1.005-1.025) POC Urine Protein Conf (Negative) Urine Ketones (NEGATIVE) Urine Nitrite (NEGATIVE) Urine Bilirubin (NEGATIVE) Urine Urobilinogen (0-1) mg/dL Urine Leukocytes (NEGATIVE) Urine WBC (Auto) (0-5) /HPF Urine RBC (Auto) (0-2) /HPF U Epithel Cells (Auto) Urine Bacteria (Auto) (NEGATIVE) /HPF Urine RBC (0-5) Barber/ul Ur Culture Indicated? Urine Glucose (NEGATIVE) mg/dL Influenza Type A Ag NEGATIVE (NEGATIVE) Influenza Type B Ag NEGATIVE (NEGATIVE) RSV (PCR) NEGATIVE (Negative) SARS-CoV-2 (PCR) NEGATIVE (NEGATIVE) Slides for Path Review 11/30/21 11/30/21 Range/Units 07:30 07:30 WBC 6.8 (4.0-10.5) K/mm3 RBC 4.84 (4.1-5.6) M/mm3 Hgb 15.6 (12.5-18.0) gm/dl Hct 45.7 (42-50) % MCV 94.4 (78-100) fl MCH 32.2 H (26-32) pg MCHC 34.1 (32-36) g/dl RDW 13.3 (11.5-14.0) % Plt Count 223 (150-450) K/mm3 MPV 9.5 (7.5-11.0) fl Gran % (36.0-66.0) % Eos # (Auto) (0-0.5) Absolute Lymphs (auto) (1.0-4.6) Absolute Monos (auto) (0.0-1.3) Lymphocytes % (24.0-44.0) % Monocytes % (0.0-12.0) % Eosinophils % (0.00-5.0) % Basophils % (0.0-0.4) % Absolute Granulocytes (1.4-6.9) Basophils # (0-0.4) PT (9.4-12.5) SECONDS INR (0.8-3.0) D-Dimer (215-500) ng/mL Sodium 139 (137-145) mmol/L Potassium 3.8 (3.5-5.1) mmol/L Chloride 102 (98-107) mmol/L Carbon Dioxide 25 (22-30) mmol/L Anion Gap 15.2 H (5-15) MEQ/L BUN 12 (9-20) mg/dL Creatinine 0.76 (0.66-1.25) mg/dL Estimated GFR > 60.0 ML/MIN Glucose 152 H (74-106) mg/dL Lactic Acid (0.4-2.0) Calcium 9.3 (8.4-10.2) mg/dL Magnesium (1.6-2.3) mg/dL Total Bilirubin (0.2-1.3) mg/dL AST (17-59) U/L ALT (0-50) U/L Alkaline Phosphatase (38-126) U/L Troponin I (0.000-0.034) ng/mL NT-Pro-B Natriuret Pep (0-1800) pg/mL Serum Total Protein (6.3-8.2) g/dL Albumin (3.5-5.0) g/dL Urinalys Dipstick Clnc Urine Color (YELLOW) Urine Appearance (CLEAR) Urine pH (5-6) Ur Specific [place] (1.005-1.025) POC Urine Protein Conf (Negative) Urine Ketones (NEGATIVE) Urine Nitrite (NEGATIVE) Urine Bilirubin (NEGATIVE) Urine Urobilinogen (0-1) mg/dL Urine Leukocytes (NEGATIVE) Urine WBC (Auto) (0-5) /HPF Urine RBC (Auto) (0-2) /HPF U Epithel Cells (Auto) Urine Bacteria (Auto) (NEGATIVE) /HPF Urine RBC (0-5) Barber/ul Ur Culture Indicated? Urine Glucose (NEGATIVE) mg/dL Influenza Type A Ag (NEGATIVE) Influenza Type B Ag (NEGATIVE) RSV (PCR) (Negative) SARS-CoV-2 (PCR) (NEGATIVE) Slides for Path Review - Radiology Exams Ordered Rad Exams-Entire Visit: Radiology Procedures Category Date Time Status CHEST 1 VIEW (PORTABLE) Stat Exams 11/29/21 22:32 Completed CHEST WITH CONTRAST [CT] Routine Exams 11/30/21 00:11 Completed - Procedures and Test Procedures and Tests throughout Hospitalization: Therapy Orders & Screens 11/30/21 01:10 Respiratory Therapy Assessment DAILY Comment: 11/30/21 01:24 Peak Expiratory Flow Rate BEFORE&AFTER NEB [place] Comment: Before and after nebulizer treatments Reason For Exam: Diagnosis: COPD exacerbation Respiratory Therapy Consult ROUTINE Comment: Reason For Exam: Diagnosis: COPD exacerbation 11/30/21 03:30 Smoking Cessation Education ONCE Comment: Diagnosis: COPD Smoking Status: Current every day smoker How long have you smoked: 60 years Have you smoked in the past 12 months: Yes Approximately how many cigarettes per day: 2 Do you dip or chew tobacco: No - Discharge Disposition: Home, Self-Care Condition: Stable Prescriptions: New Methylprednisolone Packet [Medrol Dosepack] 1 mg PO UD #1 packet Valacyclovir HCl [Valacyclovir] 1,000 mg PO TID #21 tablet Continue Metoprolol Succinate 100 mg [Toprol Xl 100 MG] 50 mg PO BID Lisinopril 10 mg [Zestril 10 MG] 10 mg PO DAILY Atorvastatin Calcium [Lipitor] 40 mg PO QHS Instructions: Preventing Falls in the Older Adult, Chronic Obstructive Pulmonary Disease (COPD) (DC), Heart Failure, Adult (DC), High Blood Pressure (DC) Additional Instructions: FOLLOW UP WITH YOUR PRIMARY CARE PHYSICIAN. Follow up with: CORBY JULIO NP [Primary Care Provider] - 12/07/21 9:30 am
== END 2021-11-30 13:36 | disposition home or self-care (01) ==
LOC: ED 22:16 → MED SURG 11-30 02:56
PROVIDERS: ADMIT Family Medicine; ATTEND Family Medicine
DX: J44.1 Chronic obstructive pulmonary disease with (acute) exacerbation (principal); I16.0 Hypertensive urgency; B02.29 Other postherpetic nervous system involvement; I25.10 Atherosclerotic heart disease of native coronary artery without angina pectoris; E78.00 Pure hypercholesterolemia, unspecified; R21 Rash and other nonspecific skin eruption; M25.512 Pain in left shoulder; Z72.0 Tobacco use; Z79.899 Other long term (current) drug therapy; Z20.828 Contact with and (suspected) exposure to other viral communicable diseases
CPT/HCPCS: 0241U; 36000; 36415; 71045; 71260; 80048; 80053; 81015; 83605; 83735; 83880; 84484; 85025; 85027; 85379; 85610; 93005; 93041; 94150; 94640; 94762; 96365; 96366; 96372; 96374; 96375; 99291; 93268; 99285; J1650; J1885; J1940; J2060; J2405; J2930; J7609; A9270-GY; G0378

== ENCOUNTER 2022-11-15 09:11 | Day surgery (SDC) | payer MEDICARE, OTHER ==
[~2022-11-15 09:11] MED LIST: Ak-Dilate OPHTHALMIC*** 1.065 ML, Cyclogyl 1% OPHTH SOL 1.065 ML, GATIFLOXACIN 0.5% OPH... OP ONE; BETADINE 5% OPHTHALMIC 30 ML OP ONE; Lactated Ringers 1,000 ML IV SCH; NON-FORMULARY ITEM OP ONE; TETRACAINE 0.5% STERI-UNIT SOL OP ONE; cefUROXime sodium 0.005 GM in Sodium Chloride Flush 30 ML*** 0.5 ML IJ ONE
[2022-11-15] MEDS ORDERED: Epinephrine Preservative Free 1 MG/ML IJ ONE (09:12)
[2022-11-15] MEDS ORDERED: Lactated Ringers 1,000 ML IV ONE (09:46)
[2022-11-15] MEDS ORDERED: Zofran 4 MG/2 ML VIAL IV PRN (11:00)
[2022-11-15] MEDS ORDERED: DIPRIVAN 200 MG/20 ML IV ONE ×2 (11:40→11:44)
[2022-11-15] MEDS: ACETAZOLAMIDE 250 MG TABLET PO ONE (12:43)
[2022-11-15 13:08] VITALS: BP 129/84; PULSE 61; O2SAT 94
== END 2022-11-15 13:10 | disposition home or self-care (01) ==
LOC: SDC 09:11
PROVIDERS: ATTEND Ophthalmology
DX: H25.812 Combined forms of age-related cataract, left eye (principal)
CPT/HCPCS: 99100; C1780; J0171; J2704; A9270-GY

== ENCOUNTER 2022-12-13 10:24 | Day surgery (SDC) | payer OTHER ==
[~2022-12-13 10:24] MED LIST changes: +ACETAZOLAMIDE 250 MG TABLET PO ONE; +Zofran 4 MG/2 ML VIAL IV PRN
[2022-12-13] MEDS ORDERED: Lactated Ringers 1,000 ML IV ONE (10:37)
[2022-12-13] MEDS ORDERED: DIPRIVAN 200 MG/20 ML IV ONE (13:38)
[2022-12-13] MEDS ORDERED: Xylocaine-Mpf 2% 5 Ml Vial ONE (13:38)
[2022-12-13] MEDS ORDERED: Versed 2 MG/2 ML Injection ONE (13:42)
[2022-12-13 14:31] VITALS: BP 147/93; PULSE 60; O2SAT 96
== END 2022-12-13 14:38 | disposition home or self-care (01) ==
LOC: SDC 10:24
PROVIDERS: ATTEND Ophthalmology
DX: H25.811 Combined forms of age-related cataract, right eye (principal)
CPT/HCPCS: C1780; J2250; J2704; A9270-GY